=== PATIENT | male | born 2005 | race Caucasian/White ===

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

== ENCOUNTER 2025-03-19 22:40 | Emergency (ER) | payer OTHER, SELFPAY ==
[2025-03-19 22:44] VITALS: BP 126/94
--- NOTE | 2025-03-20 00:15 | ED.GENMED ---
History of Present Illness
General
Chief Complaint: Crisis Evaluation
Source: patient, records and family
Exam Limitations: none
Time Seen by Provider: 03/20/25 00:05
Nursing documentation reviewed up to this point in time: agreed with
History of Present Illness
History of Present Illness:
20-year-old male with history of substance use, ADHD, bipolar disorder who presents to the emergency room with his mother for evaluation of hallucinations and violent outburst. Patient lives at home with his mother. He has been hearing voices he
says off and on for a year. He says that he hears what sounds like 'downstairs neighbors saying bad things about me.' His mother says that there are no voices/neighbors. Mother says that at times when he is hallucinating he becomes violent and
throws things and smash his furniture. This is what prompted him to come to the emergency room for crisis assessment. Patient describes his mood as 'angry.' He says that he feels this way because of the voices. He denies hearing any command
hallucinations. He denies feeling suicidal or having homicidal thoughts. He denies any physical complaints. He denies any drug or alcohol use but has documented history of drug use in the past.
Past History
Past History
ED Past Medical History: Psychiatric
Social History
Tobacco: Non-smoker
Drug: None
Living: with family
Family History
Family History: Other
Review of Systems
Review of Systems
All Other Systems: ROS reviewed and negative except as documented in HPI and ROS
Respiratory: Denies trouble breathing
Cardiac: Denies chest pain
ABD/GI: Denies abdominal pain
Musculoskeletal: Denies neck pain or back pain
Neurological: Denies headache
Psychiatric: Reports hallucinations; Denies suicidal
Phy Exam
Physical Exam
Physical Exam:
General: Awake, alert, nontoxic
Head: Normocephalic, atraumatic
Eyes: Conjunctiva normal, pupils equal round and reactive to light bilaterally
Throat: Airway intact, handling secretions
Neck: Trachea midline
Lungs: Clear to auscultation bilaterally, no wheezing, rales, rhonchi
Heart: Regular rate and rhythm, no murmurs, gallops, or rubs
Neuro: No gross deficits
Extremities: Warm and well-perfused
Psych: 'Angry' mood, flat affect; does not appear to be responding to internal stimuli
Scores
Heart Failure Risk
Heart Failure Risk Score: Not Applicable
Heart Score for Chest Pain Patients
STEMI patient?: Not applicable
Withdrawal Assessment of Alcohol
Withdrawal Assessment Completed?: Not applicable
Course
Orders/Labs/Results
Orders:
Orders
03/20/25 00:14
Crisis Consult Routine
Reason for Consult: hallucinated
03/20/25 00:15
Drug Screen, Urine [Urine Drug Abuse Screen] Urgent
Vital Signs
Initial and Last Documented VS:
Initial Vital Signs
Temp Pulse Resp BP Pulse Ox
36.8 C 118 19 126/94 93
03/19/25 22:44 03/19/25 22:44 03/19/25 22:44 03/19/25 22:44 03/19/25 22:44
Last Documented Vital Signs
Temp Pulse Resp BP Pulse Ox
36.8 C 118 20 126/94 93
03/19/25 22:44 03/19/25 22:44 03/19/25 23:00 03/19/25 22:44 03/19/25 22:44
MDM/Problems Addressed
Differential Diagnosis Includes:
Schizophrenia, bipolar with jean, substance use
MDM/Problems Addressed:
20-year-old male presents with hallucinations and labile behavior. Vitals and exam as above. Currently calm and cooperative but he does have flattened affect and admits to active hallucinations. Mother describes his behavior as explosive at home.
Will monitor behavior very closely, hold off on additional medications right now but low threshold if behavior starts to escalate. Case discussed with crisis for assessment. Inpatient psychiatric treatment seems reasonable. Patient seems
agreeable to this.
Crisis performed their assessment, offered inpatient psychiatric treatment but patient does not want to go for inpatient treatment. They offered intensive outpatient treatment which patient prefers. I had a long discussion with the patient and the
patient's mother. Right now he is calm and cooperative and has not exhibited any violent behavior and has not expressed any violent behavior. I did explain however to mother that based on what she is describing of labile mood/behavior at home that
there is potential for violence. She says that she has never witnessed any violent behavior towards others and that most of his aggression is verbal. Based on my observations here I do not feel that there are any grounds at this point for
involuntary psychiatric treatment however explained to the mother that if she has any safety concerns that she has the right to file for involuntary commitment. She does not feel this is necessary at this time and feels comfortable taking patient
home and so in keeping with patient and mother's wishes we will discharge with a plan for intensive outpatient treatment but I did speak at length to the mother that if she has any safety concerns whatsoever that she should call to have patient
brought back to the emergency room.
Chronic conditions affecting care:
Bipolar disorder
*Pulse Oximetry
Patient hypoxic: no
*Critical Care Note
Total Time (30-74mins, 75-104mins- exclusive of procedures): Not Applicable
Data Reviewed
Source: patient, records and family
Patient Management
Discussion with other providers: Other (Discussed with crisis staff)
ED Attending Note
-
Portions of this chart may have been created with voice recognition software.� Occasional wrong word or��sound alike� substitutions may have occurred due to the inherent limitations of voice recognition software.
Discharge Plan
Departure
Patient Disposition: Home (Routine Discharge)
Date of Disposition: 03/20/25
Time of Disposition: 00:29
Patient with high blood pressure during this ER visit?: No
Discharge Problem:
Psychosis
Prescriptions:
No Action
clonidine HCl 0.1 mg Tablet
0.1 mg PO DAILY
divalproex [Depakote] 250 mg Tablet,Delayed Release (Dr/Ec)
250 mg PO DAILY
quetiapine [Seroquel] 200 mg Tablet
200 mg PO BID
divalproex [Depakote] 500 mg Tablet,Delayed Release (Dr/Ec)
500 mg PO HS
Seroquel
500 mg PO HS
Referrals:
UNKNOWN - PT NOT,INTERVIEWE [Family Provider] -
Interventions
Interventions:
*Risk Screen - Suicide Last Done: 03/19/25 22:46
*General Assessment Last Done: 03/19/25 22:45
*Neglect/Abuse Screening Last Done: 03/19/25 22:46
*ED- Fall Risk Assessment Last Done: 03/19/25 22:52
*ED COVID-19 Vaccine History Last Done: 03/19/25 22:45
ED-Psychological Assessment Last Done: 03/19/25 23:23
Discharge Date and Time
Print Language: SERBIAN
== END 2025-03-20 02:20 | disposition home or self-care (01) ==
LOC: EMR 22:40
PROVIDERS: EMERGENCY PHYSICIAN Emergency Medicine
DX: F29 Unspecified psychosis not due to a substance or known physiological condition (principal); F31.9 Bipolar disorder, unspecified
CPT/HCPCS: 99283

== ENCOUNTER → 2025-07-12 09:09 | Outpatient (REF) | payer OTHER, SELFPAY | LOC: HWCARD 09:09 | PROVIDERS: ATTENDING PHYSICIAN Student in an Organized Health Care Education/Training Program | DX: F20.9 Schizophrenia, unspecified (principal) | CPT/HCPCS: 93005 ==